=== PATIENT | male | born 1960 | race Caucasian/White ===

== ENCOUNTER 2023-09-25 17:27 | Emergency (ER) | payer MEDICAID, OTHER ==
[~2023-09-25] VITALS: Ht 167.6 cm; Wt 69.0 kg
[~2023-09-25 17:27] MED LIST: INSU100I28 SQ; LIP40 MT; LOSA100T33 MT; LOSA50TA41 PO
[2023-09-25 17:37] VITALS: BP 195/99; PULSE 67; RESP 20; TEMP 98.5; O2SAT 96
[2023-09-25] MEDS ORDERED: CLONIDINE 0.2MG TABLET PO ONE (18:30)
[2023-09-25 19:07] LABS: BASOPHILS % 0.7 % (0.0-2.0); EOSINOPHILS % 6.5 % (0.0-5.0); HEMATOCRIT. 35.1 % (42.0-52.0); HEMOGLOBIN. 11.7 g/dL (14.0-18.0); MEAN CORPUSCULAR HEMOGLOBIN 28.2 pg (28.0-32.0); MEAN CORPUSCULAR HGB CONC 33.4 g/dL (31.0-37.0); MEAN CORPUSCULAR VOLUME 84.6 fL (80.0-94.0); MEAN PLATELET VOLUME 8.5 fl (7.4-10.4); MONOCYTES % 7.3 % (2.0-8.0); NEUTROPHILS % 64.5 % (40.0-76.0); PLATELET 329 x1000/uL (130-400); RED BLOOD CELL COUNT 4.15 mill/uL (4.7-6.1); RED CELL DISTRIBUTION WIDTH 14.9 % (11.6-14.6); WHITE BLOOD COUNT 10.1 x1000/uL (4.5-11.0)
[2023-09-25 19:14] LABS: CHLORIDE 107 mEq/L (98-107); SODIUM 138 mEq/L (136-145)
[2023-09-25 19:15] LABS: CALCIUM 8.6 mg/dL (8.7-10.4); CARBON DIOXIDE 27 mEq/L (21-32)
[2023-09-25 19:20] LABS: GLUCOSE 106 mg/dL (70-105); UREA NITROGEN BLOOD 37 mg/dL (9-23)
[2023-09-25 19:21] LABS: CREATININE 2.5 mg/dL (0.6-1.3); TROPONIN I HIGH SENSITIVITY 7 ng/L (3.0-53)
[2023-09-25] MEDS: CLONIDINE 0.1MG TABLET PO NR (20:21)
[2023-09-25] MEDS: FUROSEMIDE 40MG TABLET PO ONE (20:21)
[2023-09-25] MEDS ORDERED: HYDRALAZINE 20MG/ML VIAL IV NR (22:30)
== END 2023-09-25 22:48 | disposition left against medical advice (07) ==
LOC: ER 17:27
DX: I16.0 Hypertensive urgency (principal); I10 Essential (primary) hypertension; R60.0 Localized edema; N17.9 Acute kidney failure, unspecified; E11.9 Type 2 diabetes mellitus without complications; E78.00 Pure hypercholesterolemia, unspecified; Z79.899 Other long term (current) drug therapy
CPT/HCPCS: 36415; 71045; 80048; 83880; 84484; 85025; 93005; 99291

== ENCOUNTER 2023-12-25 08:11 | Inpatient (IN) | payer OTHER, MEDICAID ==
[~2023-12-25] VITALS: Ht 172.7 cm; Wt 72.9 kg
[2023-12-25 09:35] LABS: BG BASE EXCESS 0.6 mmol/L (-2.0-3.0); BG CARBOXYHEMOGLOBIN 0.3 % (0.5-1.5); BG DEOXYHEMOGLOBIN 6.6 % (0.0-5.0); BG FRACTION INSPIRED OXYGEN 21; BG HCO3 ACT 26.5 mmol/L (21.0-28.0); BG METHEMOGLOBIN 0.3 % (0.5-1.5); BG OXYGEN SATURATION 93.4 % (94.0-98.0); BG OXYHEMOGLOBIN 92.8 % (94.0-98.0); BG PCO2 48.4 mmHg (35.0-48.0); BG PH 7.357 (7.350-7.450); BG PO2 69.3 mmHg (83.0-108.0); BG SAMPLE SITE RIGHT RADIAL; BG TOTAL HEMOGLOBIN 11.5 g/dL (13.5-17.5); BG VENT MODE ROOM AIR
[2023-12-25 09:47] LABS: BASOPHILS % 0.7 % (0.0-2.0); EOSINOPHILS % 3.5 % (0.0-5.0); HEMATOCRIT. 35.2 % (42.0-52.0); HEMOGLOBIN. 11.7 g/dL (14.0-18.0); LYMPHOCYTES % 14.9 % (20.0-50.0); MEAN CORPUSCULAR HEMOGLOBIN 27.7 pg (28.0-32.0); MEAN CORPUSCULAR HGB CONC 33.3 g/dL (31.0-37.0); MEAN CORPUSCULAR VOLUME 83.2 fL (80.0-94.0); MEAN PLATELET VOLUME 9.3 fl (7.4-10.4); MONOCYTES % 7.3 % (2.0-8.0); NEUTROPHILS % 73.6 % (40.0-76.0); PLATELET 306 x1000/uL (130-400); RED BLOOD CELL COUNT 4.23 mill/uL (4.7-6.1); RED CELL DISTRIBUTION WIDTH 13.9 % (11.6-14.6); WHITE BLOOD COUNT 8.4 x1000/uL (4.5-11.0)
[2023-12-25 10:01] LABS: CHLORIDE 98 mEq/L (98-107); POTASSIUM 3.2 mEq/L (3.5-5.1); SODIUM 131 mEq/L (136-145)
[2023-12-25 10:02] LABS: CALCIUM 8.5 mg/dL (8.7-10.4); CARBON DIOXIDE 26 mEq/L (21-32)
[2023-12-25 10:05] LABS: INR 0.9; PROTHROMBIN TIME 10.3 sec (9.6-11.0)
[2023-12-25 10:07] LABS: CREATININE 1.9 mg/dL (0.6-1.3); UREA NITROGEN BLOOD 27 mg/dL (9-23)
[2023-12-25 10:08] LABS: TROPONIN I HIGH SENSITIVITY 11 ng/L (3.0-53)
[2023-12-25 10:13] LABS: ETHANOL BLOOD < 10 mg/dL (<10); GLUCOSE 383 mg/dL (70-105)
[2023-12-25] MEDS: HYDRALAZINE 20MG/ML VIAL IV ONE (11:00)
[2023-12-25] MEDS: IOHEXOL-350 100 ML BOTTLE ONE (11:02)
[2023-12-25] MEDS ORDERED: ONDANSETRON HCL 4MG/2ML INJ IV PRN (12:30)
[2023-12-25] MEDS ORDERED: NITROGLYCERIN 0.4MG TABLET SL SL PRN (12:30)
[2023-12-25] MEDS ORDERED: ACETAMINOPHEN 325MG TABLET PO PRN ×2 (12:30)
[2023-12-25] MEDS ORDERED: MAGNESIUM/ALUMINUM HYDROXIDE/SIMETHICONE 30ML UDC PO PRN (12:30)
[2023-12-25] MEDS ORDERED: DOCUSATE SODIUM 100MG CAPSULE PO PRN (12:30)
[2023-12-25] MEDS ORDERED: DEXTROSE 50% WATER 50ML SYRINGE IV PRN (12:30)
[2023-12-25] MEDS ORDERED: IPRATROPIUM/ALBUTEROL 0.5-3(2.5)MG/3ML NEB NEB PRN (12:30)
[2023-12-25] MEDS ORDERED: GUAIFENESIN 200MG/10ML SUGAR FREE UDC PO PRN (12:30)
[2023-12-25] MEDS: DEXT 5%/LACTATED RINGERS 1,000 ML IV SCH (12:41)
[2023-12-25] MEDS: BLOOD SUGAR DIAGNOSTIC STRIP TEST SCH (13:00)
[2023-12-25] MEDS: ENOXAPARIN 40MG/0.4ML SYR SUBCUT SCH (13:48)
[2023-12-25] MEDS: MVI, ADULT NO.1 10 ML, FOLIC ACID 1 MG, THIAMINE HCL 100 MG in SODIUM CHLORIDE 0.9% 1,0... IV SCH (13:49)
[2023-12-25] MEDS: KCL 20MEQ/100ML PREMIX 100 ML IV SCH (13:49)
[2023-12-25 14:02] LABS: FOLIC ACID (FOLATE) SERUM 15.67 ng/mL (>5.38); VITAMIN B12 SERUM 1573 pg/mL (211-911)
[2023-12-25 14:33] LABS: IRON 61 ug/dL (65-175)
[2023-12-25 14:34] LABS: LDL CHOLESTEROL 102 mg/dL (5-100); TRIGLYCERIDE 200 mg/dL (0-150)
[2023-12-25 14:35] LABS: ALANINE AMINOTRANSFERASE 23 IU/L (10-49); ALBUMIN 3.3 g/dL (3.2-4.8); ASPARTATE AMINOTRANSFERASE 29 IU/L (<34)
[2023-12-25 14:36] LABS: BILIRUBIN TOTAL 0.2 mg/dL (0.1-1.0); CHOLESTEROL 176 mg/dL (<200); HDL CHOLESTEROL 32 mg/dL (>55); PROTEIN TOTAL 6.2 g/dL (6.0-8.3); TOTAL IRON BINDING CAPACITY 391 ug/dl (250-425)
[2023-12-25 14:37] LABS: BILIRUBIN DIRECT < 0.1 mg/dL (<=3.0)
[2023-12-25 14:41] LABS: THYROID STIMULATING HORMONE 6.18 uIU/mL (0.55-4.78)
[2023-12-25 14:42] LABS: T4 FREE 1.22 ng/dL (0.89-1.76)
[2023-12-25] MEDS: INSULIN LISPRO 100 UNITS/ML SUBCUT SCH (15:08)
[2023-12-25 15:52] LABS: CREATINE KINASE MB FRACTION 2.7 ng/mL (0.5-3.6)
[2023-12-25 18:46] VITALS: BP 152/77; PULSE 95; RESP 16; TEMP 36.16956; O2SAT 95
[2023-12-25 20:00] VITALS: BP 160/86; PULSE 91; RESP 18; TEMP 36.114; O2SAT 99
[2023-12-25] MEDS: FAMOTIDINE 20MG TABLET PO SCH (22:39)
[2023-12-25] MEDS: INSULIN GLARGINE 100 UNITS/ML SUBCUT SCH (22:41)
[2023-12-26] VITALS: BP 169/83; PULSE 87; RESP 20; TEMP 37.44744
[2023-12-26 00:24] LABS: CREATINE KINASE MB FRACTION 2.2 ng/mL (0.5-3.6)
[2023-12-26 04:00] VITALS: BP 171/81; PULSE 73; RESP 18; TEMP 35.78064
[2023-12-26] MEDS: CLONIDINE 0.1MG TABLET PO PRN (05:02)
[2023-12-26 08:00] VITALS: BP 155/80; PULSE 63; RESP 20; TEMP 36.33624; O2SAT 100
[2023-12-26 09:23] LABS: CHLORIDE 105 mEq/L (98-107); POTASSIUM 3.5 mEq/L (3.5-5.1); SODIUM 136 mEq/L (136-145)
[2023-12-26 09:27] LABS: CALCIUM 8.3 mg/dL (8.7-10.4); CARBON DIOXIDE 24 mEq/L (21-32)
[2023-12-26 09:32] LABS: ALANINE AMINOTRANSFERASE 17 IU/L (10-49); GLUCOSE 369 mg/dL (70-105); UREA NITROGEN BLOOD 25 mg/dL (9-23)
[2023-12-26 09:34] LABS: ALBUMIN 2.9 g/dL (3.2-4.8); ASPARTATE AMINOTRANSFERASE 16 IU/L (<34); BILIRUBIN TOTAL 0.2 mg/dL (0.1-1.0); PHOSPHORUS 2.7 mg/dL (2.5-4.9)
[2023-12-26 09:35] LABS: PROTEIN TOTAL 5.3 g/dL (6.0-8.3)
[2023-12-26] MEDS: ASPIRIN 81MG EC TABLET PO SCH (09:46)
[2023-12-26 09:57] LABS: BASOPHILS % 0.9 % (0.0-2.0); EOSINOPHILS % 4.8 % (0.0-5.0); HEMATOCRIT. 31.7 % (42.0-52.0); HEMOGLOBIN. 10.4 g/dL (14.0-18.0); MEAN CORPUSCULAR HEMOGLOBIN 27.4 pg (28.0-32.0); MEAN CORPUSCULAR HGB CONC 32.9 g/dL (31.0-37.0); MEAN CORPUSCULAR VOLUME 83.3 fL (80.0-94.0); MEAN PLATELET VOLUME 10.1 fl (7.4-10.4); MONOCYTES % 8.3 % (2.0-8.0); PLATELET 299 x1000/uL (130-400); RED BLOOD CELL COUNT 3.81 mill/uL (4.7-6.1); RED CELL DISTRIBUTION WIDTH 13.9 % (11.6-14.6); WHITE BLOOD COUNT 8.2 x1000/uL (4.5-11.0)
[2023-12-26 12:00] VITALS: BP 171/80; PULSE 66; RESP 16; TEMP 36.44736; O2SAT 100
[2023-12-26 16:00] VITALS: BP 160/72; PULSE 62; RESP 20; TEMP 36.28068; O2SAT 100
[2023-12-26 20:00] VITALS: BP 155/76; PULSE 71; RESP 20; TEMP 36.33624; O2SAT 100
[2023-12-26] MEDS: ATORVASTATIN CALCIUM 10MG TABLET PO SCH (22:14)
[2023-12-27] VITALS: BP 146/61; PULSE 68; RESP 19; TEMP 36.78072; O2SAT 97
[2023-12-27 04:00] VITALS: BP 145/60; PULSE 70; RESP 18; TEMP 36.9474; O2SAT 98
[2023-12-27 08:00] VITALS: BP 135/60; PULSE 77; RESP 18; TEMP 36.61404; O2SAT 100
[2023-12-27] MEDS ORDERED: LOSA100T33 MT (08:47)
[2023-12-27] MEDS ORDERED: ASPI-1406 MT (08:47)
[2023-12-27] MEDS ORDERED: INSU100I28 SQ (08:47)
[2023-12-27] MEDS ORDERED: ATOR-388 MT (08:47)
[2023-12-27] MEDS ORDERED: INSLIS SUBCUT (08:47)
[2023-12-27 09:21] VITALS: BP 135/84; PULSE 77; TEMP 97.5; O2SAT 100
[2023-12-27] MEDS: ENOXAPARIN 30MG/0.3ML SYR SUBCUT SCH (10:11)
== END 2023-12-27 10:40 | disposition home or self-care (01) | DRG 420 ==
LOC: ER 08:11 → 5WST 10:40
PROVIDERS: ADMIT Internal Medicine; ATTEND Internal Medicine
DX: E11.00 Type 2 diabetes mellitus with hyperosmolarity without nonketotic hyperglycemic-hyperosmolar coma (NKHHC) (principal); N17.0 Acute kidney failure with tubular necrosis; G92.8 Other toxic encephalopathy; E78.00 Pure hypercholesterolemia, unspecified; D64.9 Anemia, unspecified; E87.1 Hypo-osmolality and hyponatremia; I10 Essential (primary) hypertension; E87.6 Hypokalemia; Z86.73 Personal history of transient ischemic attack (TIA), and cerebral infarction without residual deficits; Z79.4 Long term (current) use of insulin
CPT/HCPCS: 36415; 36600; 70496; 70498; 71045; 76770; 80048; 80053; 80061; 80076; 80320; 82375; 82550; 82553; 82607; 82746; 82805; 82962; 83036; 83540; 83550; 83605; 83735; 84100; 84145; 84439; 84443; 84484; 85025; 93005; 93970; 99285; J0360; J1650; J1815; J3411; J3480; J3490; J7030; Q9967; G0480